=== PATIENT | female | born 1990 | race Caucasian/White ===

== ENCOUNTER 2020-01-26 22:29 | Emergency (ER) | payer OTHER ==
[2020-01-26] MEDS ORDERED: Ondansetron 4 MG/2 ML SDV IVPUSH ONE (22:41)
[2020-01-26] MEDS ORDERED: Sodium Chloride 0.9% 10 ML Syringe FLUSH PRN (22:41)
[2020-01-26] MEDS ORDERED: Ketorolac 15 MG/ML SDV IVPUSH ONE (22:41)
[2020-01-26] MEDS ORDERED: Sodium Chloride 0.9% 1,000 ML IV ONE (22:50)
--- NOTE | 2020-01-28 00:53 | EDM.PDOC ---
ED HPI GENERAL MEDICAL PROBLEM - General Chief Complaint: General Stated Complaint: Heat exposure, N/V, diarrhea Time Seen by Provider: 01/26/20 22:40 Source of Information: Reports: Patient History Limitations: Reports: No Limitations - History of Present Illness INITIAL COMMENTS - FREE TEXT/NARRATIVE: Pt. presents to ER with complaints of "heat stroke". Pt. states that she was outside in the sun all day and got "heat stroke". She states that she has been trying to drink water. She complains of nausea, 2 episodes of vomiting, and diarrhea. Denies any fever or chills. No abdominal discomfort. Pt. state that she is having muscle pains in her arms, legs, abdomen, and back. Pt. denies any chest pain or shortness of breath. Denies any trauma. She complains of a headache. Denies any consumption of alcohol or street drugs. Onset: Today Location: Reports: Abdomen abdomen Pain Score (Numeric/FACES): 6 - Related Data Allergies Allergy/AdvReac Type Severity Reaction Status Date / Time amoxicillin Allergy Rash Verified 01/26/20 23:06 Home Meds: Home Meds . [No Known Home Meds] 02/22/18 [History] Past Medical History - Past Surgical History HEENT Surgical History: Reports: Adenoidectomy Musculoskeletal Surgical History: Reports: Amputation, Other (See Below) Other Musculoskeletal Surgeries/Procedures:: foot surgery ED ROS GENERAL - Review of Systems Review Of Systems: Comprehensive ROS is negative, except as noted in HPI. ED EXAM, GENERAL - Physical Exam Exam: See Below Exam Limited By: No Limitations General Appearance: Alert, WD/WN, No Apparent Distress Eye Exam: Bilateral Eye: EOMI, Normal Fundi, Normal Inspection, PERRL Nose: Normal Inspection, Normal Mucosa, No Blood Throat/Mouth: Normal Inspection, Normal Lips, Normal Teeth, Normal Gums, Normal Oropharynx, Normal Voice, No Airway Compromise Head: Atraumatic, Normocephalic Neck: Normal Inspection, Supple, Non-Tender, Full Range of Motion Respiratory/Chest: No Respiratory Distress, Lungs Clear, Normal Breath Sounds, No Accessory Muscle Use, Chest Non-Tender Cardiovascular: Normal Peripheral Pulses, Regular Rate, Rhythm, No Edema, No Gallop, No JVD, No Murmur, No Rub Peripheral Pulses: 4+: Radial (L) GI/Abdominal: Normal Bowel Sounds, Soft, Non-Tender, No Organomegaly, No Distention, No Mass (Female) Exam: Deferred Rectal (Female) Exam: Deferred Back Exam: Normal Inspection, Full Range of Motion Extremities: Normal Inspection, Normal Range of Motion, Non-Tender, Normal Capillary Refill, No Pedal Edema Neurological: Alert, Oriented, CN II-XII Intact, Normal Cognition, Normal Reflexes, No Motor/Sensory Deficits Psychiatric: Normal Affect, Normal Mood Skin Exam: Warm, Dry, Intact, Normal Color, No Rash Lymphatic: No Adenopathy Course - Vital Signs Last Recorded V/S: Last Vital Signs Temp 37.1 C 01/26/20 22:30 Pulse 77 01/26/20 22:30 Resp 22 H 01/26/20 22:30 BP 107/67 01/26/20 22:30 Pulse Ox 99 01/26/20 22:30 - Orders/Labs/Meds Meds: Medications Discontinued Medications Generic Name Dose Route Start Last Admin Trade Name Freq PRN Reason Stop Dose Admin Sodium Chloride 1,000 mls @ 999 mls/hr 01/26/20 22:50 01/26/20 22:50 Normal Saline IV 01/26/20 23:50 999 mls/hr ONETIME ONE Administration Ketorolac Tromethamine 15 mg 01/26/20 22:41 01/26/20 22:56 Toradol IVPUSH 01/26/20 22:42 15 mg ONETIME ONE Administration Ondansetron HCl 4 mg 01/26/20 22:41 01/26/20 22:55 Zofran IVPUSH 01/26/20 22:42 4 mg ONETIME ONE Administration Sodium Chloride 10 ml 01/26/20 22:41 Saline Flush FLUSH ASDIRECTED PRN Keep Vein Open Departure - Departure Time of Disposition: 00:00 Disposition: Home, Self-Care 01 Clinical Impression: Heat exhaustion - Discharge Information Instructions: Heat Illness-SportsMed Referrals: Edwin Myles DO [Primary Care Provider] - Forms: ED Department Discharge Additional Instructions: Home to rest. Tylenol and ibuprofen as needed for discomfort. Drink plenty of fluids. Follow-up in clinic in 7-10 days. Sepsis Event Note (ED) - Evaluation Sepsis Screening Result: No Definite Risk - Problem List Review Problem List Initiated/Reviewed/Updated: Yes - Assessment/Plan Plan: Home to rest. Tylenol and ibuprofen as needed for discomfort. Drink plenty of fluids. Follow-up in clinic in 7-10 days.
== END 2020-01-26 23:38 | disposition home or self-care (01) ==
LOC: VM.ED 22:29
DX: T67.5XXA Heat exhaustion, unspecified, initial encounter (principal); Z88.1 Allergy status to other antibiotic agents
CPT/HCPCS: 96361; 96374; 96375; 99283-25; J1885; J2405; J7030